=== PATIENT | male | born 1975 | race Two or more races ===

== ENCOUNTER → 2016-08-23 | Outpatient (CLI) | payer OTHER ==
[~2016-08-23] MED LIST: IOPAMIDOL (ISOVUE 370) 100 ML BTL IV ONE
--- NOTE | 2016-08-23 08:51 | CT ---
CT Angiogram of the Head and Neck 0 752 hours History: CVA/TIA symptoms with attention posterior circulation. Technique: Spiral imaging was obtained from the aortic arch through the skull during the administrati on of 85 mL Isovue-370 IV contrast. The images were reviewed in multiple planes. Volume rendering was performed by me, as well. Dose reduction techniques were utilized. Findings: CT Angiogram Neck: The aortic arch has a normal contour. The great vessels off the aortic arch are no rmal in appearance. The common carotid artery has a normal contour bilaterally. The carotid bulb is n ormal in appearance without plaque formation. The ECA and ICA are normal without plaque formation or stenosis. The vertebral arterial system within the neck is normal in appearance without stenosis, as well. The origin of the vertebral artery is also normal bilaterally. There is no evidence of aneurys m or dissection. Images through the neck demonstrate no significant lymphadenopathy. A few small subcentimeter lymph n odes are seen. The musculature is symmetric. The submandibular glands and parotid glands are normal i n appearance bilaterally. CT Angiogram [place]: The distal ICA at the base of the brain has a normal appearance bilate rally without evidence of stenosis. No significant plaque formation is seen. There is normal branchin g into the anterior and middle cerebral arteries. The anterior communicating artery is normal in appe arance. There is no cutoff of flow or evidence of aneurysm. The vertebrobasilar system demonstrates normal contrast enhancement without evidence of stenosis or a neurysm. There is normal branching into the posterior inferior cerebellar artery, as well as the supe rior cerebellar artery and posterior cerebral artery branches. A posterior communicating artery is no t identified. Imaging through the brain demonstrates no evidence of intracranial hemorrhage, subdural collection, v ascular malformation, or evidence of cerebral infarction. Cbfy-[id number] left maxillary sinus disea se is identified with mucosal thickening. The remainder of the paranasal sinuses are clear. The front al sinuses are hypoplastic. Impression: Normal CT angiogram of the neck. Normal CT angiogram of the [place], as detailed above. Note: All calculations were performed using NASCET criteria.
--- NOTE | 2016-08-23 09:32 | MR ---
MRI of the Brain (Without Contrast) History: Possible posterior circulation stroke versus TIA. Comparison: Noncontrast CT head December 07, 2014 Technique: T1-weighted images were acquired axially and sagittally from the foramen magnum to the ve rtex. Axial fast inversion recovery, fast T2-weighted, GRE and diffusion-weighted axial images were obtained without contrast. Findings: The ventricles, cisterns, and sulci are normal without atrophy, hydrocephalus, midline melita ft, herniation, or epidural/subdural hematomas. No intracranial hemorrhage or masses. A small focal f ield dropout in the posterior inferior right thalamus is secondary to a round parenchymal calcificati on seen on the prior noncontrast head CT. No additional similar parenchymal "calcifications" are iden tified. Diffusion-weighted sequence demonstrates no acute infarct. Cerebellar tonsils are in normal p osition. Pituitary gland is normal in size. Normal signal flow-void in the superior sagittal sinus, b oth distal vertebral arteries, basilar artery, and bilateral distal internal carotid arteries indicat ing patency. Paranasal sinuses and mastoid air cells are aerated, with circumferential moderate mucos al thickening involving the hypoplastic left maxillary sinus. The frontal sinuses are aplastic. Impression: 1. Negative brain. No evidence for a posterior circulation stroke. 2. Benign solitary parenchymal calcification in the right thalamus. Perhaps this patient had remote c ysticercosis infection.
== END ==
LOC: FIMAGING 07:06 → EDBD 07:15
PROVIDERS: ATTEND Internal Medicine
DX: Z13.6 Encounter for screening for cardiovascular disorders (principal)
CPT/HCPCS: Q9967